=== PATIENT | male | born 1960 | race Caucasian/White ===

== ENCOUNTER 2017-07-21 15:44 | Emergency (ER) | payer SELFPAY ==
[~2017-07-21] VITALS: Ht 170.2 cm; Wt 94.0 kg
[2017-07-21 15:46] VITALS: Ht 170.2 cm; Wt 94.0 kg
[2017-07-21] MEDS ORDERED: BUPIVACAINE 0.25% (MPF) 10 ML 10 ML VIAL INJ ONE (16:30)
--- NOTE | 2017-07-21 16:35 | RADRPT ---
PROCEDURE: XR Lumbar Spine. CLINICAL INDICATION: Back pain. TECHNIQUE: Three views. AP, lateral and cone-down lateral view of the lumbar spine were obtained. COMPARISON: No prior studies are available for comparison. FINDINGS: There is normal stature and alignment of the vertebrae. There is no fracture. There is no lytic or blastic lesion. There are degenerative changes with osteophytes throughout. The disc height is normal. The paravertebral soft tissues are unremarkable. IMPRESSION: 1. Degenerative changes with osteophytes throughout. 2. No acute abnormality. RPTAT: QQ .Horacio Mondragon MD, Date Time Electronically viewed and signed by .Horacio Mondragon MD, on 07/21/2017 16:35 .R/
[2017-07-21] MEDS ORDERED: CYCL-319 PO (16:58)
[2017-07-21] MEDS ORDERED: BUPIVACAINE 0.25% (MPF) 30 ML INJ INJ SCH (17:00)
--- NOTE | 2017-07-21 17:12 | ERD ---
ER Documentation Chief Complaint Date/Time DATE: 07/21/17 TIME: 17:05 Chief Complaint back pain radiates to right lower leg x 6 months got worse today HPI 56-year-old male with complaint of pain in his right lower back that radiates to the right lower leg 6 months. Patient stated that his pain had a sudden onset 6 months ago, but denies any injuries. 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 His seen at [facility], was given ibuprofen and naproxen. Patient stated that they had not help with his pain. Pain is better when he sits down, worse when he stands up. Denies saddle paresthesia. Denies bowel or bladder dysfunction. His fever or chills. ROS All systems reviewed and are negative except as per history of present illness. Medications Home Meds Active Scripts Cyclobenzaprine Hcl* (Cyclobenzaprine Hcl*) 10 Mg Tablet, 10 MG PO TID, #15 TAB Prov:KATERYNA LAURENT [employer] ACCOUNTS RECEIVABLE SPECIALIST 07/21/17 Allergies Allergies: Coded Allergies: Unknown: Unable to obtain (Unverified , 07/21/17) PMhx/Soc History of Surgery: No Anesthesia Reaction: No Hx Neurological Disorder: No Hx Respiratory Disorders: No Hx Cardiac Disorders: Yes (HTN) Hx Psychiatric Problems: No Hx Miscellaneous Medical Probl: No Hx Alcohol Use: No Hx Substance Use: No Hx Tobacco Use: No Smoking Status: Former smoker Physical Exam Vitals Vital Signs Date Time Temp Pulse Resp B/P Pulse Ox O2 Delivery O2 Flow Rate FiO2 07/21/17 15:46 97.8 76 19 170/98 97 Physical Exam General: Well-developed, well-nourished, conscious and coherent, in no distress Skin: Warm and dry without rash, good texture and turgor Head: Normocephalic without evidence of trauma Eyes: Sclera and conjunctivae normal; pupils equal, round, and reactive to light; extraocular movements are intact Neck: Supple without meningismus or adenopathy. Carotids are equal. Trachea midline. No bruits or JVD Chest: Normal AP diameter. Good expansion without retractions. Nontender. Lungs are clear to auscultate bilaterally with good tidal volume Heart: Regular rate and rhythm. No murmur, rub, or gallops heard Back: No spinal tenderness. Tenderness in the right buttock, she elicits radiating pain down the posterior of his right leg. Extremities: Full range of motion. Good strength bilaterally. No clubbing, cyanosis, or edema. Peripheral pulses are intact. Sensation intact Neuro: Alert and oriented 4, GCS 15. Cranial nerves grossly intact. Motor and sensory exams nonfocal. Moves all extremities. Speech clear. Gait normal Results 24 hrs Current Medications Medications (Trade) Dose Ordered Sig/Lashaun Route PRN Reason Start Time Stop Time Status Last Admin Dose Admin Bupivacaine HCl (Marcaine 0.25% (Mpf) 10 ml) 10 ml ONCE ONCE INJ 07/21/17 16:30 07/21/17 16:31 Cancel Bupivacaine HCl (Marcaine 0.25% (Mpf) 30 ml) 30 ml ONCE INJ 07/21/17 17:00 07/21/17 19:00 PROCEDURE: XR Lumbar Spine. CLINICAL INDICATION: Back pain. TECHNIQUE: Three views. AP, lateral and cone-down lateral view of the lumbar spine were obtained. COMPARISON: No prior studies are available for comparison. FINDINGS: There is normal stature and alignment of the vertebrae. There is no fracture. There is no lytic or blastic lesion. There are degenerative changes with osteophytes throughout. The disc height is normal. The paravertebral soft tissues are unremarkable. IMPRESSION: 1. Degenerative changes with osteophytes throughout. 2. No acute abnormality. RPTAT: QQ .Horcaio Mondragon MD, Date Time Electronically viewed and signed by .Horacio Mondragon MD, on 07/21/2017 16:35 .R/ CC: KATERYNA LAURENT [employer] ACCOUNTS RECEIVABLE SPECIALIST Procedures/MDM 56-year-old male present ED with pain in the right buttock that radiates down to the right lower leg 6 month. X-ray lumbar spine is negative. Patient does not have any midline spinal tenderness. I doubt spinal fracture, subluxation, or disc herniation. I doubt spinal epidural abscess, cauda equina syndrome. The patient is pain is from piriformis syndrome. Procedure note: Trigger point injection Trigger point injection performed by me. 10 mL of bupivacaine is injected into right gluteal region. Total number muscle groups injected: 1. Patient reports improvement of pain after the trigger point injection. Patient advised to follow-up with his PCP for physical therapy referral. I also educated patient proper lifting techniques to prevent back injury. Patient appears well, stable for discharge and outpatient management. Medical decision making shared with patient and family. Education provided to patient and family. Patient and family expressed understanding of the plan. Medications on discharge: Flexeril. Follow-up: Primary care provider in 2-3 days or return to ED if worse. Disclaimer: Inadvertent spelling and grammatical errors are likely due to EHR/ dictation software use and do not reflect on the overall quality of patient care. Also, please note that the electronic time recorded on this note does not necessarily reflect the actual time of the patient encounter. Departure Diagnosis: Primary Impression: Pyriformis syndrome Laterality: right Qualified Code: G57.01 - Piriformis syndrome of right side Condition: Stable Patient Instructions: Back Spasm, No Trauma [facility] Usted se dowd hecho un examen mdico de control que le indica que no est en cody condicin que requiera tratamiento urgente en el Departamento de Emergencia. Un estudio ms profundo y el tratamiento de mg condicin pueden esperar sin ningn riesgo hasta que usted sea atendida/o en el consultorio de mg mdico o cody cl thomas. Es responsabilidad suya arreglar cody carlo para el seguimiento del zbigniew. MANEJO DE CONDICIONES NO URGENTES EN EL FUTURO 1) Si usted tiene un mdico de atencin primaria: Usted debera llamar a mg mdico de atencin primaria antes de venir al departamento de emergencia. Despus de las horas de consultorio, mg doctor o mg asociado/a est disponible por telfono. El mdico o enfermero de rekha en el servicio telefnico puede asesorarle por simon medio para atender el problema, o zbigniew contrario se puede programar cody carlo. 2) Si usted no tiene un mdico de atencin primaria: Llame al mdico o clnica de referencia que aparece abajo [place] las horas de consultorio para hacer cody carlo para que le vean. CLINICAS: [facility] [phone] [facility] [phone] [facility] [phone] [place] [phone] [place] [address] [phone] [facility] [phone] [address] Additional Instructions: Llame al doctor MAANA y garrett cody CARLO PARA DENTRO DE 2-3 LDEESMA.Dgale a la secretaria que nosotros le instruimos hacer esta carlo.Avise o llame si mg condicin se empeora antes de la carlo. Regresa aqui si peor o no mejor. KATERYNA LAURENT NP Jul 21, 2017 17:12
== END 2017-07-21 17:28 | disposition home or self-care (01) ==
LOC: FTE 15:44
DX: G57.01 Lesion of sciatic nerve, right lower limb (principal); I10 Essential (primary) hypertension; Z87.891 Personal history of nicotine dependence
CPT/HCPCS: 72100